=== PATIENT | female | born 1995 | race Asian ===

== ENCOUNTER 2018-09-14 01:35 | Emergency (ER) | payer MEDICAID, OTHER ==
[~2018-09-14] VITALS: Ht 160 cm; Wt 106.0 kg
[2018-09-14] MEDS ORDERED: IBUPROFEN 800MG TABLET PO ONE (06:45)
[2018-09-14 07:24] VITALS: BP 132/88
== END 2018-09-14 08:47 | disposition home or self-care (01) ==
LOC: ER 01:35
DX: M54.2 Cervicalgia (principal)
CPT/HCPCS: 81025; 99282